=== PATIENT | male | born 1990 | race Caucasian/White ===

== ENCOUNTER 2024-01-23 08:33 | Outpatient (CLI) | payer BC ==
[~2024-01-23] VITALS: Ht 182.9 cm; Wt 86.2 kg
[2024-01-23] MEDS: albuterol 2.5 MG/3 ML nebule NEB ONE (09:11)
[2024-01-23 09:15] VITALS: PULSE 91; RESP 16; O2SAT 96
== END 2024-01-23 23:59 | disposition home or self-care (01) ==
LOC: RT 08:33
PROVIDERS: ATTEND Internal Medicine Pulmonary Disease
DX: J45.40 Moderate persistent asthma, uncomplicated (principal)
CPT/HCPCS: 94060; 94727; 94729; 94760